=== PATIENT | male | born 1930 | race Caucasian/White ===

== ENCOUNTER 2016-11-13 08:46 | Inpatient (IN) | payer MEDICARE, BC, OTHER ==
[~2016-11-13] VITALS: Ht 177.8 cm; Wt 85.7 kg
[~2016-11-13 08:46] MED LIST: ASPIR-LOW81 M1 PO; BENICAR20 M1 PO; CENTRUM SILVER1 EAC3 PO; COREG12.5 M1 PO; COREG25 M1 PO; FLOMAX0.4 M1 PO; GLUCOTROL5 M1 PO; IPRATROPIUM BRO30 M1; ISOSORBIDE MONO60 M3 PO; JANUVIA100 M1 PO; LASIX40 M1 PO; OMEPRAZOLE40 M2 PO; POTASSIUM CHLO20 ME3 PO; PRESERVISION A1 EAC3 PO; SIMVASTATIN10 M1 PO; TOFRANIL PO; TRADJENTA5 MG PO; VITAMIN B122500 MCG PO; VITAMIN B6100 MG PO; VITAMIN C1000 M1 PO; VITAMIN D35000 UNI3 PO; ZOCOR10 MG PO; ZYRTEC10 M3 PO
[2016-11-13] MEDS ORDERED: AMIODARONE HCL200 M1 PO (09:19)
[2016-11-13] MEDS ORDERED: GLIPIZIDE ER10 MG PO (09:20)
[2016-11-13] MEDS ORDERED: TOPROL XL50 M1 PO (09:20)
[2016-11-13] MEDS ORDERED: PREDNISONE10 M1 PO (09:23)
[2016-11-13] MEDS ORDERED: IPRAT-ALBUT 0.5-3 ML INH (09:26)
[2016-11-13 09:29] LABS: HCT-HEMATOCRIT 31.7 % (36.0-53.5); HGB-HEMOGLOBIN 10.4 gm/dl (13.5-17.0); MCH (MEAN CORPUSCULAR HGB) 32.5 pg (28.0-32.0); MCHC MEAN CORPUSCULAR HGB CONC 32.8 % (32.0-36.0); MCV (MEAN CELL VOLUME) 99.1 fl (82.0-96.0); MEAN PLATELET VOLUME 12.1 cmc (9.4-12.4); NEUTROPHIL-AUTOMATED 15.1 tho/cmm (1.6-8.0); RED CELL DISTRIBUTION WIDTH 18.7 % (12.4-16.4); WHITE BLOOD COUNT 17.7 tho/cmm (4.0-10.0)
[2016-11-13 09:30] LABS: INR 1.2 INR (0.9-1.1); PROTHROMBIN TIME 14.3 SECONDS (9.0-13.6)
[2016-11-13 09:34] LABS: ABG CO2 ARTERIAL 26 mmol/L (21-27); ARTERIAL BLD GAS O2 SATURATION 98 % (95-98); ARTERIAL BLOOD GAS PCO2 42 mmHg (32-45); ARTERIAL PO2 134 mmHg (70-100); BICARBONATE 25 mmol/L (21-28); BLOOD GAS BASE EXCESS 0 mM/L (-/+3); PH 7.39 Units (7.35-7.45)
[2016-11-13 09:42] LABS: PLATELET COUNT 50 tho/cmm (150-450)
[2016-11-13 09:44] LABS: ANION GAP 13 mmol/L (0-20); BLOOD UREA NITROGEN 26 mg/dl (6-24); CALCIUM 8.6 mg/dl (8.5-10.5); CARBON DIOXIDE-VENOUS 26 mmol/L (22-32); CHLORIDE 108 mmol/l (96-110); CREATININE 1.05 mg/dl (0.60-1.30); GLUCOSE 350 mg/dL (70-110); POTASSIUM 4.4 mmol/L (3.7-5.1); SODIUM 143 mmol/L (135-145); eGFR VALUE FOR BLACK 74 mL/Min
[2016-11-13 10:09] LABS: BAND % 16 % (0-20); BAND ABSOLUTE COUNT 2.8 tho/cmm (0-2.0); WBC MORPHOLOGY TOXIC GRANULATION
[2016-11-13 12:03] LABS: URINE BILIRUBIN NEGATIVE (NEG); URINE BLOOD MODERATE (NEG); URINE GLUCOSE (UA) NEGATIVE (NEG); URINE KETONE NEGATIVE (NEG); URINE LEUKOCYTE ESTERASE POSITIVE (NEG); URINE NITRITE NEGATIVE (NEG); URINE PROTEIN NEGATIVE (NEG)
[2016-11-13 12:04] LABS: URINE APPEARANCE HAZY; URINE COLOR PALE YELLOW
[2016-11-13 12:12] LABS: URINE EPITHELIAL CELLS RARE /[HPF] (0-10); URINE RBC RARE /[HPF] (0-5)
[2016-11-13 12:13] LABS: URINE BACTERIA 2+
[2016-11-14 05:59] LABS: BASO % 0.1 % (0-2); EOS % 0.1 % (0-7); HCT-HEMATOCRIT 29.9 % (36.0-53.5); HGB-HEMOGLOBIN 9.9 gm/dl (13.5-17.0); IMMATURE GRANULOCYTES ABSOLUTE 0.11 tho/cmm (0-0.03); IMMATURE GRANULOCYTES PERCENT 0.6 % (0-0.3); LYMPH % 6.7 % (20-45); LYMPH ABSOLUTE COUNT 1.2 tho/cmm (0.8-4.5); MCH (MEAN CORPUSCULAR HGB) 32.4 pg (28.0-32.0); MCHC MEAN CORPUSCULAR HGB CONC 33.1 % (32.0-36.0); MCV (MEAN CELL VOLUME) 97.7 fl (82.0-96.0); MEAN PLATELET VOLUME 12.4 cmc (9.4-12.4); MONO % 3.3 % (0-12); MONOCYTE ABSOLUTE COUNT 0.6 tho/cmm (0.0-1.2); NEUTROPHIL ABSOLUTE COUNT 16.5 tho/cmm (1.6-8.0); NEUTROPHIL-AUTOMATED 16.5 tho/cmm (1.6-8.0); NEUTROPHILS % 89.2 % (40-80); PLATELET COUNT 54 tho/cmm (150-450); RED BLOOD COUNT 3.06 mil/cmm (4.40-5.70); WHITE BLOOD COUNT 18.5 tho/cmm (4.0-10.0)
[2016-11-14 06:23] LABS: ALB/GLOB RATIO 0.8 (0.8-2.0); ALBUMIN 2.9 g/dl (3.5-5.0); ALKALINE PHOSPHATASE 136 U/L (33-138); ALT/SGPT 45 U/L (12-78); ANION GAP 13 mmol/L (0-20); AST/SGOT 21 U/L (10-40); BILIRUBIN,TOTAL 0.7 mg/dl (0.0-1.5); BLOOD UREA NITROGEN 29 mg/dl (6-24); CALCIUM 8.3 mg/dl (8.5-10.5); CARBON DIOXIDE-VENOUS 28 mmol/L (22-32); CHLORIDE 106 mmol/l (96-110); SODIUM 143 mmol/L (135-145); eGFR VALUE FOR BLACK 79 mL/Min
[2016-11-14 06:24] LABS: GLUCOSE 173 mg/dL (70-110)
[2016-11-14 13:12] LABS: C-REACTIVE PROTEIN 3.8 mg/dl (0-0.9)
[2016-11-14 13:49] LABS: PROCALCITONIN 0.43 ng/ml (0.05-0.09)
[2016-11-15 04:23] LABS: HCT-HEMATOCRIT 24.3 % (36.0-53.5); HGB-HEMOGLOBIN 8.2 gm/dl (13.5-17.0); MCH (MEAN CORPUSCULAR HGB) 32.8 pg (28.0-32.0); MCHC MEAN CORPUSCULAR HGB CONC 33.7 % (32.0-36.0); MCV (MEAN CELL VOLUME) 97.2 fl (82.0-96.0); MEAN PLATELET VOLUME 10.6 cmc (9.4-12.4); NEUTROPHIL-AUTOMATED 11.5 tho/cmm (1.6-8.0); RED CELL DISTRIBUTION WIDTH 18.7 % (12.4-16.4); WHITE BLOOD COUNT 13.2 tho/cmm (4.0-10.0)
[2016-11-15 04:34] LABS: PLATELET COUNT 46 tho/cmm (150-450)
[2016-11-15 04:37] LABS: ALBUMIN 2.5 g/dl (3.5-5.0); ANION GAP 12 mmol/L (0-20); BLOOD UREA NITROGEN 31 mg/dl (6-24); C-REACTIVE PROTEIN 4.9 mg/dl (0-0.9); CALCIUM 7.9 mg/dl (8.5-10.5); CARBON DIOXIDE-VENOUS 29 mmol/L (22-32); CHLORIDE 107 mmol/l (96-110); CREATININE 1.07 mg/dl (0.60-1.30); GLUCOSE 104 mg/dL (70-110); POTASSIUM 3.6 mmol/L (3.7-5.1); PREALBUMIN 18.4 mg/dl (20.0-40.0); SODIUM 144 mmol/L (135-145); eGFR VALUE FOR BLACK 72 mL/Min
[2016-11-15 05:11] LABS: PROCALCITONIN 0.38 ng/ml (0.05-0.09)
[2016-11-15 06:19] LABS: BAND % 13 % (0-20); BAND ABSOLUTE COUNT 1.7 tho/cmm (0-2.0); WBC MORPHOLOGY TOXIC GRANULATION
[2016-11-16 05:11] LABS: BASO % 0.1 % (0-2); EOS % 0.2 % (0-7); HCT-HEMATOCRIT 25.8 % (36.0-53.5); HGB-HEMOGLOBIN 8.8 gm/dl (13.5-17.0); IMMATURE GRANULOCYTES ABSOLUTE 0.13 tho/cmm (0-0.03); LYMPH % 8.6 % (20-45); LYMPH ABSOLUTE COUNT 1.1 tho/cmm (0.8-4.5); MCH (MEAN CORPUSCULAR HGB) 33.1 pg (28.0-32.0); MCHC MEAN CORPUSCULAR HGB CONC 34.1 % (32.0-36.0); MEAN PLATELET VOLUME 11.4 cmc (9.4-12.4); MONO % 4.2 % (0-12); MONOCYTE ABSOLUTE COUNT 0.6 tho/cmm (0.0-1.2); NEUTROPHIL ABSOLUTE COUNT 11.2 tho/cmm (1.6-8.0); NEUTROPHIL-AUTOMATED 11.2 tho/cmm (1.6-8.0); NEUTROPHILS % 85.9 % (40-80); PLATELET COUNT 66 tho/cmm (150-450); RED BLOOD COUNT 2.66 mil/cmm (4.40-5.70); RED CELL DISTRIBUTION WIDTH 18.8 % (12.4-16.4); WHITE BLOOD COUNT 13.1 tho/cmm (4.0-10.0)
[2016-11-16 05:22] LABS: ANION GAP 8 mmol/L (0-20); BLOOD UREA NITROGEN 30 mg/dl (6-24); C-REACTIVE PROTEIN 2.9 mg/dl (0-0.9); CARBON DIOXIDE-VENOUS 30 mmol/L (22-32); CHLORIDE 107 mmol/l (96-110); CREATININE 1.06 mg/dl (0.60-1.30); GLUCOSE 139 mg/dL (70-110); SODIUM 141 mmol/L (135-145); eGFR VALUE FOR BLACK 73 mL/Min
[2016-11-16 05:33] LABS: PROCALCITONIN 0.26 ng/ml (0.05-0.09)
[2016-11-17 05:38] LABS: BASO % 0.1 % (0-2); EOS % 0.2 % (0-7); HCT-HEMATOCRIT 26.2 % (36.0-53.5); HGB-HEMOGLOBIN 8.8 gm/dl (13.5-17.0); IMMATURE GRANULOCYTES ABSOLUTE 0.09 tho/cmm (0-0.03); IMMATURE GRANULOCYTES PERCENT 0.8 % (0-0.3); LYMPH % 11.4 % (20-45); LYMPH ABSOLUTE COUNT 1.4 tho/cmm (0.8-4.5); MCH (MEAN CORPUSCULAR HGB) 32.7 pg (28.0-32.0); MCHC MEAN CORPUSCULAR HGB CONC 33.6 % (32.0-36.0); MCV (MEAN CELL VOLUME) 97.4 fl (82.0-96.0); MEAN PLATELET VOLUME 11.3 cmc (9.4-12.4); MONOCYTE ABSOLUTE COUNT 0.5 tho/cmm (0.0-1.2); NEUTROPHILS % 83.5 % (40-80); PLATELET COUNT 83 tho/cmm (150-450); RED BLOOD COUNT 2.69 mil/cmm (4.40-5.70)
[2016-11-17 05:45] LABS: ANION GAP 9 mmol/L (0-20); BLOOD UREA NITROGEN 29 mg/dl (6-24); C-REACTIVE PROTEIN 1.9 mg/dl (0-0.9); CALCIUM 8.3 mg/dl (8.5-10.5); CARBON DIOXIDE-VENOUS 31 mmol/L (22-32); CHLORIDE 105 mmol/l (96-110); CREATININE 1.09 mg/dl (0.60-1.30); GLUCOSE 143 mg/dL (70-110); POTASSIUM 3.7 mmol/L (3.7-5.1); SODIUM 141 mmol/L (135-145); eGFR VALUE FOR BLACK 71 mL/Min
[2016-11-17 08:15] LABS: PROCALCITONIN 0.18 ng/ml (0.05-0.09)
[2016-11-18 04:20] LABS: BASO % 0.2 % (0-2); EOS % 0.1 % (0-7); HCT-HEMATOCRIT 26.6 % (36.0-53.5); HGB-HEMOGLOBIN 8.8 gm/dl (13.5-17.0); IMMATURE GRANULOCYTES ABSOLUTE 0.12 tho/cmm (0-0.03); LYMPH % 13.4 % (20-45); LYMPH ABSOLUTE COUNT 1.6 tho/cmm (0.8-4.5); MCHC MEAN CORPUSCULAR HGB CONC 33.1 % (32.0-36.0); MCV (MEAN CELL VOLUME) 99.6 fl (82.0-96.0); MEAN PLATELET VOLUME 11.2 cmc (9.4-12.4); MONO % 5.1 % (0-12); MONOCYTE ABSOLUTE COUNT 0.6 tho/cmm (0.0-1.2); NEUTROPHIL ABSOLUTE COUNT 9.5 tho/cmm (1.6-8.0); NEUTROPHIL-AUTOMATED 9.5 tho/cmm (1.6-8.0); NEUTROPHILS % 80.2 % (40-80); PLATELET COUNT 95 tho/cmm (150-450); RED BLOOD COUNT 2.67 mil/cmm (4.40-5.70); RED CELL DISTRIBUTION WIDTH 19.4 % (12.4-16.4); WHITE BLOOD COUNT 11.9 tho/cmm (4.0-10.0)
[2016-11-18 04:29] LABS: ANION GAP 8 mmol/L (0-20); BLOOD UREA NITROGEN 27 mg/dl (6-24); CALCIUM 8.1 mg/dl (8.5-10.5); CARBON DIOXIDE-VENOUS 30 mmol/L (22-32); CHLORIDE 105 mmol/l (96-110); CREATININE 1.07 mg/dl (0.60-1.30); GLUCOSE 158 mg/dL (70-110); POTASSIUM 3.7 mmol/L (3.7-5.1); SODIUM 139 mmol/L (135-145); eGFR VALUE FOR BLACK 72 mL/Min
[2016-11-18 17:43] LABS: ANION GAP 16 mmol/L (0-20); BLOOD UREA NITROGEN 26 mg/dl (6-24); CALCIUM 8.4 mg/dl (8.5-10.5); CARBON DIOXIDE-VENOUS 28 mmol/L (22-32); CHLORIDE 102 mmol/l (96-110); CREATININE 1.25 mg/dl (0.60-1.30); POTASSIUM 3.7 mmol/L (3.7-5.1); SODIUM 142 mmol/L (135-145); eGFR VALUE FOR BLACK 60 mL/Min
[2016-11-18 17:44] LABS: GLUCOSE 276 mg/dL (70-110)
[2016-11-19 04:34] LABS: HGB-HEMOGLOBIN 8.5 gm/dl (13.5-17.0); PLATELET COUNT 116 tho/cmm (150-450)
[2016-11-19 04:45] LABS: ANION GAP 12 mmol/L (0-20); BLOOD UREA NITROGEN 29 mg/dl (6-24); CARBON DIOXIDE-VENOUS 31 mmol/L (22-32); CHLORIDE 105 mmol/l (96-110); CREATININE 1.07 mg/dl (0.60-1.30); GLUCOSE 178 mg/dL (70-110); POTASSIUM 3.5 mmol/L (3.7-5.1); SODIUM 144 mmol/L (135-145); eGFR VALUE FOR BLACK 72 mL/Min
[2016-11-19] MEDS ORDERED: PACERONE200 M1 PO (13:24)
[2016-11-19] MEDS ORDERED: ELIQUIS2.5 M1 PO (13:24)
[2016-11-19] MEDS ORDERED: TOPROL XL50 M1 PO (13:25)
[2016-11-19] MEDS ORDERED: TOPROL XL25 M1 PO (13:26)
[2016-11-19] MEDS ORDERED: POTASSIUM CHLO20 ME3 PO (13:27)
[2016-11-19] MEDS ORDERED: DEMADEX20 M1 PO (13:28)
[2016-11-19] MEDS ORDERED: KEFLEX500 M4 PO (13:29)
== END 2016-11-19 14:45 | DRG 871 ==
LOC: EDMED → EDBD 08:46 → PCUA 12:05 → EMR2 12:05 → PCUA 14:48
PROVIDERS: Emergency Medicine; Internal Medicine Infectious Disease; Physician Assistant; ADMIT Family Medicine
PROC: 05HB33Z Insertion of Infusion Device into Right Basilic Vein, Percutaneous Approach (ICD-10-PCS; principal; 2016-11-14)
DX: A41.51 Sepsis due to Escherichia coli [E. coli] (principal); I50.23 Acute on chronic systolic (congestive) heart failure; I42.9 Cardiomyopathy, unspecified; C34.90 Malignant neoplasm of unspecified part of unspecified bronchus or lung; I48.92 Unspecified atrial flutter; E11.40 Type 2 diabetes mellitus with diabetic neuropathy, unspecified; D69.6 Thrombocytopenia, unspecified; N39.0 Urinary tract infection, site not specified; D64.9 Anemia, unspecified; Z95.810 Presence of automatic (implantable) cardiac defibrillator
CPT/HCPCS: C1751; J0282; J0456; J0690; J0696; J1250; J1650; J1815; J1940; J2543; J3475; J7050